=== PATIENT | female | born 1965 | race Caucasian/White ===

== ENCOUNTER 2016-05-18 18:32 | Emergency (ER) | payer OTHER ==
[2016-05-18 20:12] VITALS: BP 158/85; TEMP 98.3
--- NOTE | 2016-05-18 20:15 | ED.PDOC ---
History of Present Illness - General Chief Complaint: Respiratory Problem Stated Complaint: cough /nasal congestion Time Seen by Provider: 05/18/16 20:14 Source: patient, RN notes reviewed, Vital Signs reviewed Exam Limitations: no limitations - History of Present Illness Initial Comments: She stated that3 weeks ago started with non productive cough and nasal congestion seen her md and was prescribed antibiotics and steroid injection got better for one week then her symptoms recurred thi time with eyes both red. Timing/Duration: week - 3 Severity: moderate Possible Cause: occasional episodes, irritant gases exposure Improving Factors: nothing Worsening Factors: nothing Associated Symptoms: nasal drainage, other - eyes red Allergies/Adverse Reactions: Allergies Succinylcholine Allergy (Verified 05/18/16 20:38) Home Medications: Ambulatory Orders Chlorpheniramine Maleate [Chlor-Trimeton] 4 mg PO TID #30 tab 05/18/16 Dextromet/Guaifenesin 600/30 T [Mucinex Dm 600/30MG] 1 tab PO BID #30 tab Moxifloxacin HCl (Ophth) [Vigamox] 3 ml OP BID #1 bottle 05/18/16 Review of Systems - Review of Systems Constitutional: States: no symptoms reported EENTM: States: see HPI, nose congestion, other - eyes red Respiratory: States: see HPI, cough Cardiology: States: no symptoms reported, chest pain Genitourinary: States: no symptoms reported Musculoskeletal: States: no symptoms reported Skin: States: no symptoms reported Neurological: States: no symptoms reported Endocrine: States: other - medullary thyroid cancer Hematologic/Lymphatic: States: no symptoms reported Past Medical History (General) - Patient Medical History Hx Stroke: No Hx Asthma: No Hx of COPD: No Hx Cardiac Disorders: Yes Hx Thyroid Disease: Yes - medullary thyroid cancer Hx Diabetes: - prediabetic Hx Cancer: Yes - medullary thyroid cancer Surgical History: tonsillectomy, other - thyroidectomy,btl,cardiac cath , colonoscopy - Vaccination History Hx Tetanus, Diphtheria Vaccination: No Hx Influenza Vaccination: No Hx Pneumococcal Vaccination: No Family Medical History - Family History Mother Family History: Unknown Hx Family Cancer: Yes - colon,colonic polyp Physical Exam - Physical Exam General Appearance: Alert, Comfortable, No apparent distress Eye Exam: bilateral other - erythema both palpebral conjunctiva ENT Exam: normal ENT inspection, hearing grossly normal, nasal congestion Neck: non-tender, normal inspection, trachea midline Respiratory: chest non-tender, no respiratory distress, no accessory muscle use , other - coarse breath sounds Cardiovascular/Chest: normal peripheral pulses, regular rate, rhythm, no edema, no gallop Gastrointestinal/Abdominal: normal bowel sounds, non tender, soft Extremity: non-tender, no pedal edema, no calf tenderness Neurologic: alert, normal mood/affect, oriented x 3 Skin Exam: normal color, warm/dry, cyanosis Departure - Departure Clinical Impression: Upper respiratory infection with cough and congestion Conjunctivitis, both eyes Qualifiers: Conjunctivitis type: unspecified Qualifier Code: (H10.9) Unspecified conjunctivitis Time of Disposition: 21:41 Disposition: Discharge to Home or Self Care Condition: Good Departure Forms: ED Discharge - Pt. Copy, Patient Portal Self Enrollment Instructions: DI for Conjunctivitis, DI for Viral Upper Respiratory Infection - - Adult Prescriptions: Chlorpheniramine Maleate [Chlor-Trimeton] 4 mg PO TID #30 tab Dextromet/Guaifenesin 600/30 T [Mucinex Dm 600/30MG] 1 tab PO BID #30 tab Moxifloxacin HCl (Ophth) [Vigamox] 3 ml OP BID #1 bottle Home Medications: Ambulatory Orders Chlorpheniramine Maleate [Chlor-Trimeton] 4 mg PO TID #30 tab 05/18/16 Dextromet/Guaifenesin 600/30 T [Mucinex Dm 600/30MG] 1 tab PO BID #30 tab Moxifloxacin HCl (Ophth) [Vigamox] 3 ml OP BID #1 bottle 05/18/16 Additional Instructions: RETURN TO EMERGENCY ROOM NEEDED
--- NOTE | 2016-05-18 21:05 | RAD ---
EXAM DESCRIPTION: XR CHEST 2 VIEWS CLINICAL HISTORY: cough COMPARISON: None. FINDINGS: Cardiac silhouette is within normal limits. There is no focal parenchymal or pleural disease. There is no acute osseous process visualized. IMPRESSION: No evidence of acute cardiopulmonary disease. Electronically signed by: Ugo Byrd 05/18/2016 21:02
[2016-05-18] MEDS ORDERED: predniSONE 10 MG TAB PO ONE (21:39)
[2016-05-18 22:31] VITALS: O2SAT 99
== END 2016-05-18 22:33 | disposition home or self-care (01) ==
LOC: ER 18:32
DX: J06.9 Acute upper respiratory infection, unspecified (principal); H10.9 Unspecified conjunctivitis; R73.03 Prediabetes; Z85.038 Personal history of other malignant neoplasm of large intestine; Z85.850 Personal history of malignant neoplasm of thyroid; Z80.8 Family history of malignant neoplasm of other organs or systems; Z88.8 Allergy status to other drugs, medicaments and biological substances
CPT/HCPCS: 36415; 71020; 85025; J7512

== ENCOUNTER → 2017-02-18 | Outpatient (CLI) | payer OTHER ==
--- NOTE | 2017-02-18 13:11 | CT ---
EXAM DESCRIPTION: CTA Head CLINICAL HISTORY: TENSION-TYPE HEADACHE. "Worst headache of my life, I do not have headaches." Severe Claustrophobia. COMPARISON: None. TECHNIQUE: Spiral -axial scans through the head and brain at 2.5 mm intervals, without and with nonionic IV contrast. Note: CTA was performed first and noncontrast study was performed one hour later. Coronal and sagittal 2.0 mm reconstructions. Axial and coronal 2.0 mm MIP reconstructions. Volume rendering 3-D reconstruction on the craniocaudal axis. No adverse reactions. Total Exam DLP: 677.23 mGy-cm. FINDINGS: No hemorrhage. Normal contrast enhancement in the [place]. No aneurysm or significant stenosis. No mass effect or vasculitis. Anterior and posterior dilatations communicate via the right posterior communicating artery. Bilateral vertebral arteries are codominant. No aneurysms or significant stenoses in the vertebrobasilar system. No mass effect or vasculitis. No mass-effect and no midline shift. Normal symmetric contrast enhancement. Physiologic calcifications in the choroid plexus and pineal gland. Large calcification in the ambient cistern, lateral to the right quadrigeminal plate anterior to the right cerebellum on the superior anterior aspect of the posterior fossa. No abnormal enhancement of this calcification. Upper margin is at the level of the pineal gland. No effacement or displacement of the ventricles, CSF spaces, or subdural spaces. Calcifications in the superior falx. Bony calvarium is intact. IMPRESSION: 1. Normal CT scan of the head without and with IV contrast. No hemorrhage. No mass effect or midline shift. 2. Large calcification in the right ambient cistern probably from prior inflammatory process. Associated with mass, or abnormal contrast enhancement. CRITICAL COMMUNICATION: The critical value was discussed directly by phone with Dr. Jerry Morrell at approximately 1300 hours, on 02/18/2017. Electronically signed by: Brendon Gamboa MD 02/18/2017 1:10 PM CDT
== END | disposition home or self-care (01) ==
LOC: LAB.O 10:22
PROVIDERS: ATTEND Family Medicine
DX: G44.209 Tension-type headache, unspecified, not intractable (principal)

== ENCOUNTER 2020-06-17 11:08 | Emergency (ER) | payer BC ==
--- NOTE | 2020-06-17 11:23 | ED.PDOC ---
History of Present Illness - General Stated Complaint: COVID-19 Time Seen by Provider: 06/17/20 11:14 - History of Present Illness Initial Comments: Patient complains of [id number] symptoms for the last 13 days. About 12 days ago she had a positive COVID-19 test and was given some injections of steroids. She was not placed on antibiotics. Patient complains of continued dry cough with mild dyspnea. She also complains of loss of taste and smell, runny nose and sore throat, Frequent nonbloody diarrhea, dizziness. She has not complained of any incapacitating headaches or neurological dysfunction which would prevent her from undergoing activities of daily living. Timing/Duration: other - 13 days Severity: moderate Improving Factors: nothing Worsening Factors: nothing Associated Symptoms: cough, malaise, shortness of breath Allergies/Adverse Reactions: Allergies Succinylcholine Allergy (Verified 05/18/16 20:38) Home Medications: Ambulatory Orders Chlorpheniramine Maleate [Chlor-Trimeton] 4 mg PO TID #30 tab 05/18/16 Dextromet/Guaifenesin 600/30 T [Mucinex Dm 600/30MG] 1 tab PO BID #30 tab 05/18/16 Moxifloxacin HCl (Ophth) [Vigamox] 3 ml OP BID #1 bottle 05/18/16 Azithromycin [Zithromax Z-Ynuior] 250 mg PO DAILY 5 Days #6 tab MDD 500 06/17/20 Review of Systems - Review of Systems Constitutional: States: see HPI, chills, fever, malaise EENTM: States: see HPI, nose congestion, throat pain Respiratory: States: see HPI, cough, short of breath Gastrointestinal/Abdominal: States: diarrhea Genitourinary: States: no symptoms reported Musculoskeletal: States: muscle pain, muscle stiffness Skin: States: no symptoms reported Neurological: States: no symptoms reported Endocrine: States: no symptoms reported Hematologic/Lymphatic: States: no symptoms reported All other Systems: Reviewed and Negative Past Medical History (General) - Patient Medical History Hx Stroke: No Hx Asthma: No Hx of COPD: No Hx Cardiac Disorders: Yes Hx Thyroid Disease: Yes - medullary thyroid cancer Hx Diabetes: - prediabetic Hx Cancer: Yes - medullary thyroid cancer - Vaccination History Hx Tetanus, Diphtheria Vaccination: No Hx Influenza Vaccination: No Hx Pneumococcal Vaccination: No Family Medical History - Family History Mother Family History: Unknown Hx Family Cancer: Yes - colon,colonic polyp Physical Exam - Physical Exam General Appearance: Alert, Comfortable, Other - Appears comfortable and in a semisupine position without respiratory distress Eye Exam: bilateral normal Ears, Nose, Throat: normal ENT inspection Neck: non-tender, full range of motion, supple Respiratory: rales - Right upper lobe Cardiovascular/Chest: regular rate, rhythm, no edema Gastrointestinal/Abdominal: normal bowel sounds, non tender, soft Back Exam: normal inspection, no CVA tenderness Extremity: normal range of motion, no pedal edema, no calf tenderness Neurologic: miner II-XII nml as tested, no motor/sensory deficits, alert, normal mood/affect, oriented x 3 Skin Exam: normal color Lymphatic: no adenopathy Progress - Progress Progress: 06/17/20 11:35 Monoclonal antibody treatment was considered but not given because patient is outside the 10-day window from onset of symptoms. 06/17/20 12:28 Medical decision makin-year-old female with COVID-19 pneumonia who is complaining of shortness of breath but does not have visible dyspnea or significant hypoxemia. Patient does not have indications for admission at this time. She was counseled that her condition could worsen and if she develops increasing dyspnea and/or hypoxemia that admission might be required. Patient is suitable for outpatient management. - Results/Orders Results/Orders: EXAM DESCRIPTION: Chest,1 View CLINICAL HISTORY: COVID-19 COMPARISON: Chest radiograph dated May 18, 2016 TECHNIQUE: One view radiograph of the chest FINDINGS: Cardiac silhouette shows normal heart size. Pulmonary vascularity is within normal limits. Scattered hazy alveolar opacities bilateral lungs, left greater than right. No significant pleural effusion. No pneumothorax. No acute osseous abnormality. IMPRESSION: Scattered hazy alveolar opacities both lungs compatible with infectious/inflammatory processes such as pneumonia (including COVID 19 pneumonia). Recommend follow-up chest radiograph to resolution. Electronically signed by: Harry Cui MD 06/17/2020 11:58 AM [employer] Departure - Departure Clinical Impression: COVID-19, Diarrhea, Pneumonia Time of Disposition: 12:05 Disposition: Discharge to Home or Self Care Diet: regular diet Referrals: VANESSA CORMIER MD [Primary Care Provider] - 1-2 Weeks Prescriptions: Azithromycin [Zithromax Z-Yunior] 250 mg PO DAILY 5 Days #6 tab MDD 500 Home Medications: Ambulatory Orders Chlorpheniramine Maleate [Chlor-Trimeton] 4 mg PO TID #30 tab 05/18/16 Dextromet/Guaifenesin 600/30 T [Mucinex Dm 600/30MG] 1 tab PO BID #30 tab 05/18/16 Moxifloxacin HCl (Ophth) [Vigamox] 3 ml OP BID #1 bottle 05/18/16 Azithromycin [Zithromax Z-Yunior] 250 mg PO DAILY 5 Days #6 tab MDD 500 06/17/20 Additional Instructions: You should isolate yourself and in particular avoid being around older individuals for a minimum of 4 days until all symptoms have completely resolved. If you develop worsening difficulty breathing and feel like you cannot Breathe return to the emergency department.Use [id number] Robitussin-DM for coughing and Imodium for diarrhea.
[2020-06-17 11:26] VITALS: O2SAT 94
--- NOTE | 2020-06-17 11:59 | RAD ---
EXAM DESCRIPTION: Chest,1 View CLINICAL HISTORY: COVID-19 COMPARISON: Chest radiograph dated May 18, 2016 TECHNIQUE: One view radiograph of the chest FINDINGS: Cardiac silhouette shows normal heart size. Pulmonary vascularity is within normal limits. Scattered hazy alveolar opacities bilateral lungs, left greater than right. No significant pleural effusion. No pneumothorax. No acute osseous abnormality. IMPRESSION: Scattered hazy alveolar opacities both lungs compatible with infectious/inflammatory processes such as pneumonia (including COVID 19 pneumonia). Recommend follow-up chest radiograph to resolution. Electronically signed by: Harry Cui MD 06/17/2020 11:58 AM [facility]
[2020-06-17 12:17] VITALS: BP 103/69; TEMP 97.6
== END 2020-06-17 12:15 | disposition home or self-care (01) ==
LOC: ER 11:08
DX: U07.1 COVID-19 (principal); J12.82 Pneumonia due to coronavirus disease 2019; I51.9 Heart disease, unspecified; R73.03 Prediabetes; Z85.850 Personal history of malignant neoplasm of thyroid; Z79.899 Other long term (current) drug therapy; Z88.8 Allergy status to other drugs, medicaments and biological substances